=== PATIENT | male | born 1955 | race Caucasian/White ===

== ENCOUNTER 2018-05-03 11:51 | Emergency (ER) | payer SELFPAY ==
[2018-05-03 12:26] LABS: CHLORIDE,CL 103 mEq/L (98-106); SODIUM,NA 139 mEq/L (136-145)
--- NOTE | 2018-05-03 13:40 | EDM.PDOC ---
ED HPI GENERAL MEDICAL PROBLEM - General Chief Complaint: Chest Pain Stated Complaint: chest pain Time Seen by Provider: 05/03/18 12:13 Source of Information: Reports: Patient History Limitations: Reports: No Limitations - History of Present Illness INITIAL COMMENTS - FREE TEXT/NARRATIVE: Bebo is a 63 year old male who presents to the ED with c/o substernal chest pain radiating to his throat and abdomen He has no known significant PMH, although he has not seen a medical provider in 30+ years. He reports the pain began at 0922 this morning. 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 He then went to the local [employer] for breakfast. He then went home to bed and the pain woke him up from sleep at 0922. He denies any shortness of breath, dizziness, confusion, N/V/D, abdominal pain, urinary symptoms. He has not taken anything for the pain. Onset: Today, Sudden Onset Date: 05/03/18 Onset Time: 09:22 Duration: Constant Location: Reports: Chest Quality: Reports: Pressure, Sharp Severity: Severe Improves with: Reports: None Worsens with: Reports: None Associated Symptoms: Reports: Chest Pain. Denies: Confusion, Cough, cough w sputum, Diaphoresis, Fever/Chills, Headaches, Loss of Appetite, Malaise, Nausea/ Vomiting, Rash, Seizure, Shortness of Breath, Syncope, Weakness Middle Chest Pain Score (Numeric/FACES): 10 Past Medical History - Past Health History Medical/Surgical History: Denies Medical/Surgical History Social & Family History - Family History Family Medical History: Noncontributory - Tobacco Use Smoking Status *Q: Current Status Unknown - Living Situation & Occupation Living situation: Reports: Occupation: Employed ([employer]) ED ROS GENERAL - Review of Systems Review Of Systems: See Below Constitutional: Reports: No Symptoms. Denies: Fever, Chills, Weakness, Fatigue , Decreased Appetite HEENT: Reports: No Symptoms Respiratory: Reports: No Symptoms. Denies: Shortness of Breath, Wheezing, Pleuritic Chest Pain, Cough, Sputum Cardiovascular: Reports: Chest Pain, Blood Pressure Problem. Denies: Dyspnea on Exertion, Edema, Lightheadedness, Palpitations, Syncope Endocrine: Reports: No Symptoms GI/Abdominal: Denies: Abdominal Pain, Black Stool, Bloody Stool, Constipation, Diarrhea, Decreased Appetite, Hematemesis, Hematochezia, Melena, Nausea, Vomiting : Reports: No Symptoms. Denies: Dysuria, Frequency, Hematuria, Urgency Musculoskeletal: Reports: No Symptoms Skin: Reports: No Symptoms. Denies: Cyanosis, Pallor, Diaphoresis Neurological: Reports: No Symptoms. Denies: Confusion, Dizziness, Headache, Numbness, Syncope, Tingling, Weakness Psychiatric: Reports: No Symptoms Hematologic/Lymphatic: Reports: No Symptoms Immunologic: Reports: No Symptoms ED EXAM, GENERAL - Physical Exam Exam: See Below Exam Limited By: No Limitations General Appearance: Alert, WD/WN, Moderate Distress Eye Exam: Bilateral Eye: EOMI, Normal Fundi, Normal Inspection, PERRL Nose: Normal Inspection, Normal Mucosa, No Blood Throat/Mouth: Normal Inspection, Normal Lips, Normal Teeth, Normal Gums, Normal Oropharynx, Normal Voice, No Airway Compromise Head: Atraumatic, Normocephalic Neck: Normal Inspection, Supple, Non-Tender, Full Range of Motion Respiratory/Chest: No Respiratory Distress, Lungs Clear, Normal Breath Sounds, No Accessory Muscle Use, Chest Non-Tender Cardiovascular: Normal Peripheral Pulses, Regular Rate, Rhythm, No Edema, No Gallop, No JVD, No Murmur, No Rub Peripheral Pulses: 2+: Radial (L), Radial (R) GI/Abdominal: Normal Bowel Sounds, Soft, Non-Tender, No Organomegaly, No Distention, No Abnormal Bruit, No Mass Back Exam: Normal Inspection, Full Range of Motion, NT Extremities: Normal Inspection, Normal Range of Motion, Non-Tender, Normal Capillary Refill, No Pedal Edema Neurological: Alert, Oriented, CN II-XII Intact, Normal Cognition, Normal Gait, Normal Reflexes, No Motor/Sensory Deficits Psychiatric: Normal Affect, Normal Mood Skin Exam: Warm, Dry, Intact, Normal Color, No Rash Lymphatic: No Adenopathy EKG INTERPRETATION EKG Date: 05/03/18 Rhythm: NSR ST-T: Elevated Course - Vital Signs Last Recorded V/S: Last Vital Signs Temp Pulse 70 05/03/18 12:13 Resp 20 05/03/18 12:13 BP 192/107 H 05/03/18 12:13 Pulse Ox 100 05/03/18 12:13 - Orders/Labs/Meds Orders: Active Orders 24 hr Category Date Time Status Ang Abdomen [CT] Routine Exams 05/03/18 Taken Ang Chest [CT] Routine Exams 05/03/18 Taken Ang Pelvis [CT] Routine Exams 05/03/18 Taken Chest 1V Frontal [CR] Routine Exams 05/03/18 Taken Labs: Laboratory Tests 05/03/18 05/03/18 05/03/18 Range/Units 12:15 12:15 12:15 WBC 9.1 (5.0-10.0) 10^3/uL RBC 5.19 (4.50-6.00) 10^6/uL Hgb 15.7 (14.0-18.0) g/dL Hct 45.1 (40.0-54.0) % MCV 86.9 (82.0-94.0) fL MCH 30.3 (27.0-32.0) pg MCHC 34.8 (33.0-38.0) g/dL RDW Coeff of Juliet 13.0 (11.0-15.0) % Plt Count 220 (150-400) 10^3/uL Neut % (Auto) 56.2 (35-85) % Lymph % (Auto) 30.1 (10-55) % Sutton % (Auto) 11.6 (0-16) % Eos % (Auto) 1.9 (0-5) % Baso % (Auto) 0.2 (0-3) % Neut # (Auto) 5.09 (1.80-7.00) 10^3/uL Lymph # (Auto) 2.73 (1.00-4.80) 10^3/uL Sutton # (Auto) 1.05 H (0.00-0.80) 10^3/uL Eos # (Auto) 0.17 (0.00-0.45) 10^3/uL Baso # (Auto) 0.02 10^3/uL PT 9.9 (9.7-12.3) SEC INR 0.95 (0.92-1.18) APTT 29.4 (23.2-32.3) SEC Sodium 139 (136-145) mEq/L Potassium 3.5 (3.5-5.0) mEq/L Chloride 103 (98-106) mEq/L Carbon Dioxide 27 (21-32) mmol/L BUN 16 (7-18) mg/dL Creatinine 1.1 (0.7-1.3) mg/dL Est Cr Clr Drug Dosing TNP Estimated GFR (MDRD) > 60 (>=60) mL/min Glucose 149 H (75-99) mg/dL Calcium 8.9 (8.4-10.1) mg/dL Lactate Dehydrogenase 211 H (100-190) U/L Creatine Kinase 124 (35-232) U/L Troponin I 0.710 H (0.00-0.06) ng/mL - Re-Assessments/Exams Free Text/Narrative Re-Assessment/Exam: Initial EKG reveals ST elevation in leads aVF and V3. Labs stable other than troponin elevated at 0.7. Please see [facility] documentation for additional documentation and timing of interventions. Dr. Reardon was involved in care throughout course of ED visit. Patients blood pressure significantly elevated throughout stay. We were unable to start medication gtt to control BP as medications were not available that would not effect his low pulse. He did receive 2 doses of SL 0.4 mg nitro, 4 mg morphine x2 doses, 1L NS fluid bolus, 325 mg aspirin, 4 mg Zofran, Heparin bolus and gtt, and NS fluids at 150 mL/hr during time in ED. Patient's pain was improved with morphine. Patient has no contraindications to blood thinners. Risks and benefits of blood thinners discussed with patient, who was agreeable to initiating heparin. Prior to initiating heparin therapy, patient did have CTA of chest, abdomen, and pelvis to r/o aortic dissection. Called Dr. Babcock ([facility] radiology) to review films. He reports no dissection. Heparin bolus and gtt was then initiated. Dosing per Dr. Reardon. Risks and benefits of transfer were discussed with patient. Risks of transfer include worsening of condition, , and helicopter crash enroute. Benefits of transfer include higher level of care and cardiology consultation with PCI capabilities. Risks of nontransfer include worsening of condition, , and no PCI capability. Benefits of nontransfer include convenience with close proximity to home and familiarity of environment. Patient voiced understanding and was agreeable to transfer via [facility]. Throughout ED stay, patient remained alert and oriented. He remained in NSR. Departure - Departure Time of Disposition: 13:40 Disposition: DC/Tfer to Acute Hospital 02 Reason for Transfer *Q: Primary PCI Indicated Condition: Serious Clinical Impression: ST elevation myocardial infarction (STEMI) of inferior wall, initial episode of care, Uncontrolled hypertension Forms: ED Department Discharge - Problem List & Annotations (1) ST elevation myocardial infarction (STEMI) of inferior wall, initial episode of care SNOMED Code(s): 30953396, 165951420 Code(s): I21.19 - STEMI INVOLVING OTH CORONARY ARTERY OF INFERIOR WALL Status: Acute (2) Uncontrolled hypertension SNOMED Code(s): 77804637, 12438865 Code(s): I10 - ESSENTIAL (PRIMARY) HYPERTENSION Status: Acute - Problem List Review Problem List Initiated/Reviewed/Updated: Yes - My Orders Last 24 Hours: My Active Orders 05/03/18 Ang Abdomen [CT] Routine Ang Chest [CT] Routine Ang Pelvis [CT] Routine Chest 1V Frontal [CR] Routine - Assessment/Plan Last 24 Hours: My Active Orders 05/03/18 Ang Abdomen [CT] Routine Ang Chest [CT] Routine Ang Pelvis [CT] Routine Chest 1V Frontal [CR] Routine Assessment:: Inferior STEMI Uncontrolled hypertension Plan: Patient is transferred to [facility] with accepting physician Dr. Fair ( cardiology). He will be transported via [facility].
== END 2018-05-03 13:40 ==
LOC: CC.ED 11:51
DX: I21.19 ST elevation (STEMI) myocardial infarction involving other coronary artery of inferior wall (principal); I10 Essential (primary) hypertension
CPT/HCPCS: 36415; 71045; 71275; 72191; 74175; 80048; 82550; 83615; 84484; 85025; 85610; 85730; 93005; 96365; 96374; 96375; 99285; Q9967

== ENCOUNTER 2019-08-01 15:21 | Emergency (ER) | payer BC ==
[2019-08-01] MEDS: Albuterol/Ipratropium 3.0-0.5 MG/3 ML Neb Soln NEB ONE (15:43)
--- NOTE | 2019-08-01 15:56 | EDM.PDOC ---
ED HPI GENERAL MEDICAL PROBLEM - General Chief Complaint: ENT Problem Stated Complaint: cough Time Seen by Provider: 08/01/19 15:36 Source of Information: Reports: Patient History Limitations: Reports: No Limitations - History of Present Illness INITIAL COMMENTS - FREE TEXT/NARRATIVE: This patient is a 64 year old male that presents to the ER. Patient reports that on Friday he started having running nose, congestion, and productive cough. Patient denies boyer, dizziness, n, v, d, f, chest pain, shortness of breath. He denies smoking. Onset Date: 07/30/19 Duration: Day(s): (2) Severity: Mild Improves with: Reports: None Worsens with: Reports: None Associated Symptoms: Reports: Cough, cough w sputum. Denies: Chest Pain, Diaphoresis, Fever/Chills, Headaches, Loss of Appetite, Malaise, Nausea/Vomiting , Rash, Seizure, Shortness of Breath, Syncope, Weakness - Related Data Allergies Allergy/AdvReac Type Severity Reaction Status Date / Time No Known Allergies Allergy Verified 08/01/19 15:24 Home Meds: Home Meds Aspirin [Adult Low Dose Aspirin EC] 81 mg PO DAILY 08/01/19 [History] Benzonatate [Tessalon Perle] 100 mg PO TID PRN #30 capsule 08/01/19 [Rx] Clopidogrel Bisulfate [Clopidogrel] 75 mg PO DAILY 08/01/19 [History] Cyanocobalamin (Vitamin B-12) [Cyanocobalamin Injection] 1,000 mcg IM ASDIRECTED 08/01/19 [History] Folic Acid 2 mg PO DAILY 08/01/19 [History] Levofloxacin [Levaquin] 500 mg PO DAILY 5 Days #5 tablet 08/01/19 [Rx] Metoprolol Succinate 25 mg PO DAILY 08/01/19 [History] Nitroglycerin [Nitrostat] 0.4 mg SL ASDIRECTED PRN 08/01/19 [History] Ramipril 10 mg PO DAILY 08/01/19 [History] Rosuvastatin Calcium [Crestor] 40 mg PO DAILY 08/01/19 [History] predniSONE [Prednisone] 10 mg PO BID 3 Days #6 tablet 08/01/19 [Rx] Past Medical History - Past Health History Medical/Surgical History: Denies Medical/Surgical History Social & Family History - Family History Family Medical History: Noncontributory - Tobacco Use Smoking Status *Q: Never Smoker - Caffeine Use Caffeine Use: Reports: Soda - Recreational Drug Use Recreational Drug Use: No - Living Situation & Occupation Living situation: Reports: Occupation: Employed ([employer]) ED ROS GENERAL - Review of Systems Review Of Systems: See Below Constitutional: Reports: No Symptoms. Denies: Fever, Chills HEENT: Reports: Rhinitis Respiratory: Reports: Cough, Sputum. Denies: Shortness of Breath, Wheezing, Pleuritic Chest Pain Cardiovascular: Reports: No Symptoms Endocrine: Reports: No Symptoms GI/Abdominal: Reports: No Symptoms : Reports: No Symptoms Musculoskeletal: Reports: No Symptoms Skin: Reports: No Symptoms Neurological: Reports: No Symptoms Psychiatric: Reports: No Symptoms Hematologic/Lymphatic: Reports: No Symptoms Immunologic: Reports: No Symptoms ED EXAM, GENERAL - Physical Exam Exam: See Below Exam Limited By: Other (This patient is a poor historian as far as knowing medications, medical conditions, and recent docotr visits. Patient is able to give me history on his current complaint though.) General Appearance: Alert, WD/WN, No Apparent Distress Eye Exam: Bilateral Eye: Normal Inspection, PERRL Ears: Normal External Exam, Normal Canal, Hearing Grossly Normal, Normal TMs Ear Exam: Bilateral Ear: Auricle Normal, Canal Normal, TM normal Nose: Normal Inspection, Normal Mucosa, No Blood Throat/Mouth: Normal Inspection, Normal Lips, Normal Teeth, Normal Gums, Normal Voice, No Airway Compromise, Other (post nasal gtt) Head: Atraumatic, Normocephalic Neck: Normal Inspection, Supple, Non-Tender, Full Range of Motion Respiratory/Chest: No Respiratory Distress, No Accessory Muscle Use, Chest Non- Tender, Wheezing (mild expiratory wheeze throughout) Cardiovascular: Normal Peripheral Pulses, Regular Rate, Rhythm, No Edema, No Gallop, No JVD, No Murmur, No Rub Back Exam: Normal Inspection, Full Range of Motion Extremities: Normal Inspection, Normal Range of Motion, Non-Tender, No Pedal Edema, Normal Capillary Refill Neurological: Alert, Oriented, Normal Gait, No Motor/Sensory Deficits, Memory Loss Recent Events Psychiatric: Normal Affect, Normal Mood Skin Exam: Warm, Dry, Intact, Normal Color, No Rash Lymphatic: No Adenopathy Course - Vital Signs Last Recorded V/S: Last Vital Signs Temp 98.5 F 08/01/19 15:22 Pulse 63 08/01/19 15:22 Resp 18 08/01/19 15:22 BP 153/74 H 08/01/19 15:22 Pulse Ox 100 08/01/19 15:22 - Orders/Labs/Meds Orders: Active Orders 24 hr Category Date Time Status RT Aerosol Therapy [RC] ASDIRECTED Care 08/01/19 15:41 Active RT Post Treatment Assessment [RC] Click to Edit Care 08/01/19 16:06 Active RT Pre-Treatment Assessment [RC] Click to Edit Care 08/01/19 16:06 Active Chest 2V [CR] Stat Exams 08/01/19 15:40 Taken Meds: Medications Discontinued Medications Generic Name Dose Route Start Last Admin Trade Name Suyapa PRN Reason Stop Dose Admin Albuterol 1 gm 08/01/19 16:05 Ventolin Hfa INH 08/01/19 16:06 NOW STA Albuterol/Ipratropium 3 ml 08/01/19 15:40 08/01/19 15:43 Duoneb 3.0-0.5 Mg/3 Ml NEB 08/01/19 15:41 3 ml ONETIME ONE Administration Levofloxacin 500 mg 08/01/19 16:06 Levaquin PO 08/01/19 16:07 ONETIME ONE Prednisone 10 mg 08/01/19 16:07 Prednisone PO 08/01/19 16:08 NOW STA - Radiology Interpretation Free Text/Narrative:: CXR: No infiltrates. - Re-Assessments/Exams Free Text/Narrative Re-Assessment/Exam: 08/01/19 15:56 This patient seems forgetful during his exam. He does not recall his medications , medical history. He did not remember having a heart attack last year. I reviewed patient previous doctor visit notes. He has seen his PCP this month with family due to forgetting and concern for dementia. This is unchanged here in the ER today. He is currently undergoing workup and followup with his PCP for his memory. The patient today is able to give me history of his current complaint. Departure - Departure Time of Disposition: 16:10 Disposition: Home, Self-Care 01 Condition: Good Clinical Impression: Acute bronchitis Qualifiers: Bronchitis organism: unspecified organism Qualified Code(s): J20.9 - Acute bronchitis, unspecified - Discharge Information *PRESCRIPTION DRUG MONITORING PROGRAM REVIEWED*: Not Applicable *COPY OF PRESCRIPTION DRUG MONITORING REPORT IN PATIENT TALIB: Not Applicable Prescriptions: Benzonatate [Tessalon Perle] 100 mg PO TID PRN #30 capsule PRN Reason: Cough Levofloxacin [Levaquin] 500 mg PO DAILY 5 Days #5 tablet predniSONE [Prednisone] 10 mg PO BID 3 Days #6 tablet Instructions: Acute Bronchitis, Adult, [id number] Forms: ED Department Discharge Additional Instructions: Followup with your primary care provider Return to the ER for worsening of condition or any emergent concerns Levaquin 500mg 1 pill once a day for 5 days #5: no refill: At your pharmacy Prednisone 10mg 1 pill twice a day for 3 days #6 no refill: At your pharmacy Proair 90mcg inhaler 2 puffs every 6 hours as needed for shortness of breath #1 take home Tessalon 100mg 1 pill three times a day as needed for cough #30 no refill: At your pharmacy [facility] My Orders Last 24 Hours: My Active Orders 08/01/19 15:40 Chest 2V [CR] Stat 08/01/19 15:41 RT Aerosol Therapy [RC] ASDIRECTED 08/01/19 16:06 RT Post Treatment Assessment [RC] Click to Edit RT Pre-Treatment Assessment [RC] Click to Edit - Assessment/Plan Last 24 Hours: My Active Orders 08/01/19 15:40 Chest 2V [CR] Stat 08/01/19 15:41 RT Aerosol Therapy [RC] ASDIRECTED 08/01/19 16:06 RT Post Treatment Assessment [RC] Click to Edit RT Pre-Treatment Assessment [RC] Click to Edit Plan: PLEASE SEE RN NOTE FOR PFSH.
[2019-08-01] MEDS: Albuterol 8 GM Inhaler INH STA (16:13)
[2019-08-01] MEDS: predniSONE 5 MG Tab PO STA (16:14)
[2019-08-01] MEDS: Levofloxacin 500 MG Tab PO ONE (16:15)
== END 2019-08-01 16:20 | disposition home or self-care (01) ==
LOC: CC.ED 15:21
DX: J20.9 Acute bronchitis, unspecified (principal); Z79.82 Long term (current) use of aspirin; Z79.899 Other long term (current) drug therapy
CPT/HCPCS: 71046; 94640; 99283; A9270; J7620-GY

== ENCOUNTER 2021-08-12 02:25 | Emergency (ER) | payer BC ==
[2021-08-12] MEDS ORDERED: Aspirin 81 MG Tab.Chew PO ONE (02:59)
[2021-08-12] MEDS ORDERED: Morphine 2 MG/ML SYRINGE ONE (03:14)
[2021-08-12 03:25] LABS: PTT,PARTIAL THROMBOPLSTIN TIME 26.3 SEC (23.2-32.3)
[2021-08-12] MEDS ORDERED: Morphine 2 MG/ML SYRINGE IVPUSH ONE (03:34)
[2021-08-12 03:35] LABS: CHLORIDE,CL 98 mEq/L (98-106); SODIUM,NA 137 mEq/L (136-145)
[2021-08-12] MEDS ORDERED: Nitroglycerin/D5W 25 MG/250 ML BOTTLE IV SCH (03:45)
--- NOTE | 2021-08-12 03:51 | EDM.PDOC ---
ED HPI GENERAL MEDICAL PROBLEM - General Chief Complaint: General Stated Complaint: chest pain Time Seen by Provider: 08/12/21 03:10 Source of Information: Reports: Patient History Limitations: Reports: No Limitations - History of Present Illness INITIAL COMMENTS - FREE TEXT/NARRATIVE: Bebo is a 66 year old male who presents to ER with complaints of chest pain. Initially had pain yesterday am starting around 0600 when finishing his shift at the [employer]. Ate when he got home and the pressure in his chest subsided. Went to bed, set his alarm for 3 pm but awoke at 2 pm and felt an overwhelming feeling of "being very tired". Went to the [employer] for supper around 6 pm and the pain recurred. Has had persistent pain since that time, rates at a 5/10. Describes as pressure, nonradiating. No shortness of breath. No diaphoresis. Denies nausea. Has history of "clogged artery in 2018". Per his records, was to be on Plavix, Metoprolol and Ramipril. When questioned, admits has not taken very "a long time" as thought when the meds were done and said no refills, did not need to take any further. Onset: Gradual Duration: Day(s):, Waxing/Waning Location: Reports: Chest Quality: Reports: Pressure Severity: Moderate Improves with: Reports: None Associated Symptoms: Reports: Chest Pain, Malaise, Weakness. Denies: Confusion, Cough, Fever/Chills, Loss of Appetite, Nausea/Vomiting, Shortness of Breath - Related Data Allergies Allergy/AdvReac Type Severity Reaction Status Date / Time No Known Allergies Allergy Verified 08/12/21 03:28 Home Meds: Home Meds C,E,Zinc,Copper 11/Uzfcv5h/Lut [[facility] Health Adult 50 Plus Sftgl] 1 tab PO ASDIRECTED 08/12/21 [History] Past Medical History Cardiovascular History: Reports: High Cholesterol, Hypertension, [place] Hematologic History: Reports: B12 Deficiency Social & Family History - Family History Family Medical History: No Pertinent Family History - Tobacco Use Tobacco Use Status *Q: Former Tobacco User Years of Tobacco use: 12 Packs/Tins Daily: 1 Used Tobacco, but Quit: Yes Month/Year Tobacco Last Used: 12 - Caffeine Use Caffeine Use: Reports: Soda, Tea - Recreational Drug Use Recreational Drug Use: No - Living Situation & Occupation Living situation: Reports: Occupation: Employed ([employer]) ED ROS GENERAL - Review of Systems Review Of Systems: See Below Constitutional: Reports: Malaise, Weakness, Fatigue. Denies: Fever, Chills, Decreased Appetite HEENT: Denies: Ear Pain, Rhinitis, Sinus Problem, Throat Pain Respiratory: Denies: Shortness of Breath, Cough Cardiovascular: Reports: Chest Pain. Denies: Edema, Lightheadedness Endocrine: Reports: Fatigue GI/Abdominal: Denies: Abdominal Pain, Constipation, Diarrhea, Nausea, Vomiting : Reports: No Symptoms Musculoskeletal: Reports: No Symptoms Skin: Reports: No Symptoms Neurological: Reports: No Symptoms ED EXAM, GENERAL - Physical Exam Exam: See Below Exam Limited By: No Limitations General Appearance: Alert, WD/WN, No Apparent Distress Ears: Normal External Exam, Other (cerumen noted bilaterally, unable to vis ualize TM) Nose: Normal Inspection, Normal Mucosa, No Blood Throat/Mouth: Normal Inspection, Normal Oropharynx Head: Normocephalic Neck: Normal Inspection, Supple, Non-Tender Respiratory/Chest: No Respiratory Distress, Lungs Clear, Normal Breath Sounds Cardiovascular: Regular Rate, Rhythm GI/Abdominal: Normal Bowel Sounds, Soft, Non-Tender Back Exam: Normal Inspection Extremities: Normal Inspection, Pedal Edema (1+) Neurological: Alert, Oriented Skin Exam: Warm, Dry Course - Vital Signs Last Recorded V/S: Last Vital Signs Temp 100.2 F 08/12/21 02:40 Pulse 75 08/12/21 04:03 Resp 16 08/12/21 04:03 BP 169/99 H 08/12/21 04:03 Pulse Ox 98 08/12/21 04:03 - Orders/Labs/Meds Orders: Active Orders 24 hr Category Date Time Status Chest 2V [CR] Stat Exams 08/12/21 02:56 Taken Nitroglycerin/D5W [Nitroglycerin 25 MG/D5W 250 ML] Med 08/12/21 03:45 Active 25 mg in 250 ml IV TITRATE Medication Orders Nitroglycerin/Dextrose (Nitroglycerin 25 Mg/D5w 250 Ml) 25 mg in 250 mls @ 3 mls/hr IV TITRATE POP; Protocol Last Admin: 08/12/21 03:59 Dose: 5 mcg/min, 3 mls/hr Documented by: MAK Labs: Laboratory Tests 08/12/21 08/12/21 08/12/21 Range/Units 03:00 03:00 03:00 WBC 11.7 H (4.0-11.0) 10^3/uL RBC 4.91 (4.50-6.00) x10^6/uL Hgb 14.6 (14.0-18.0) g/dL Hct 41.9 L (42.0-52.0) % MCV 85.3 (83.0-97.0) fL MCH 29.7 (27.0-32.0) pg MCHC 34.8 (32.0-36.0) g/dL RDW Coeff of Juliet 12.6 (11.0-15.0) % Plt Count 273 (150-400) 10^3/uL Immature Gran % (Auto) 0.2 (0.0-4.9) % Neut % (Auto) 77.4 H (41-71) % Lymph % (Auto) 13.4 L (24-44) % [place] % (Auto) 8.6 (0-10) % Eos % (Auto) 0.2 (0-6) % Baso % (Auto) 0.2 (0-1) % Neut # (Auto) 9.06 H (1.80-8.00) x10^3/uL Lymph # (Auto) 1.56 (0.60-5.00) 10^3/uL [place] # (Auto) 1.00 (0.00-1.50) 10^3/uL Eos # (Auto) 0.02 (0.00-1.50) 10^3/uL Baso # (Auto) 0.02 (0.00-0.50) 10^3/uL Immature Gran # (Auto) 0.02 (0.00-0.49) 10^3/uL PT 10.3 (9.7-12.3) SEC INR 0.94 (0.92-1.18) APTT 26.3 (23.2-32.3) SEC Sodium 137 (136-145) mEq/L Potassium 3.6 (3.5-5.0) mEq/L Chloride 98 (98-106) mEq/L Carbon Dioxide 27 (21-32) mmol/L BUN 11 (7-18) mg/dL Creatinine 1.2 (0.7-1.3) mg/dL Est Cr Clr Drug Dosing 60.17 mL/min Estimated GFR (MDRD) > 60 (>=60) mL/min Glucose 148 H D (75-99) mg/dL Calcium 9.0 (8.4-10.1) mg/dL Magnesium 2.1 (1.8-2.4) mg/dL Total Bilirubin 0.6 (0.0-1.0) mg/dL AST 162 H (15-37) U/L ALT 46 (12-78) U/L Alkaline Phosphatase 86 (46-116) U/L Lactate Dehydrogenase 358 H (100-190) U/L Creatine Kinase 1445 H (35-232) U/L Troponin I High Sens 58366.4 H* (<=76) pg/mL Total Protein 7.9 (6.4-8.2) g/dL Albumin 3.9 (3.4-5.0) g/dL Lipase 75 (73-393) U/L SARS CoV-2 RNA Rapid HEATHER (NEGATIVE) 08/12/21 Range/Units 03:00 WBC (4.0-11.0) 10^3/uL RBC (4.50-6.00) x10^6/uL Hgb (14.0-18.0) g/dL Hct (42.0-52.0) % MCV (83.0-97.0) fL MCH (27.0-32.0) pg MCHC (32.0-36.0) g/dL RDW Coeff of Juliet (11.0-15.0) % Plt Count (150-400) 10^3/uL Immature Gran % (Auto) (0.0-4.9) % Neut % (Auto) (41-71) % Lymph % (Auto) (24-44) % [place] % (Auto) (0-10) % Eos % (Auto) (0-6) % Baso % (Auto) (0-1) % Neut # (Auto) (1.80-8.00) x10^3/uL Lymph # (Auto) (0.60-5.00) 10^3/uL [place] # (Auto) (0.00-1.50) 10^3/uL Eos # (Auto) (0.00-1.50) 10^3/uL Baso # (Auto) (0.00-0.50) 10^3/uL Immature Gran # (Auto) (0.00-0.49) 10^3/uL PT (9.7-12.3) SEC INR (0.92-1.18) APTT (23.2-32.3) SEC Sodium (136-145) mEq/L Potassium (3.5-5.0) mEq/L Chloride (98-106) mEq/L Carbon Dioxide (21-32) mmol/L BUN (7-18) mg/dL Creatinine (0.7-1.3) mg/dL Est Cr Clr Drug Dosing mL/min Estimated GFR (MDRD) (>=60) mL/min Glucose (75-99) mg/dL Calcium (8.4-10.1) mg/dL Magnesium (1.8-2.4) mg/dL Total Bilirubin (0.0-1.0) mg/dL AST (15-37) U/L ALT (12-78) U/L Alkaline Phosphatase (46-116) U/L Lactate Dehydrogenase (100-190) U/L Creatine Kinase (35-232) U/L Troponin I High Sens (<=76) pg/mL Total Protein (6.4-8.2) g/dL Albumin (3.4-5.0) g/dL Lipase (73-393) U/L SARS CoV-2 RNA Rapid HEATHER Negative (NEGATIVE) Meds: Medications Generic Name Dose Route Start Last Admin Trade Name Freq PRN Reason Stop Dose Admin Nitroglycerin/Dextrose 25 mg in 250 mls @ 3 mls/hr 08/12/21 03:45 08/12/21 03:59 Nitroglycerin 25 Mg/D5w 250 Ml IV 5 mcg/min TITRATE POP 3 mls/hr Administration Protocol 5 MCG/MIN Discontinued Medications Generic Name Dose Route Start Last Admin Trade Name Freq PRN Reason Stop Dose Admin Aspirin 324 mg 08/12/21 02:59 08/12/21 02:30 Aspirin 81 Mg Tab.Chew PO 08/12/21 03:00 324 mg ONETIME ONE Administration Morphine Sulfate 1 mg 08/12/21 03:34 08/12/21 03:38 Morphine 2 Mg/Ml Syringe IVPUSH 08/12/21 03:35 1 mg ONETIME ONE Administration Morphine Sulfate Confirm 08/12/21 03:14 08/12/21 03:38 Morphine 2 Mg/Ml Syringe Administered 08/12/21 03:15 Not Given Dose 2 mg .ROUTE .STK-MED ONE - Re-Assessments/Exams Free Text/Narrative Re-Assessment/Exam: 08/12/21 03:14 Repeated EKG on arrival as when viewed first EKG personally, did note STEMI but no obvious ST elevation, did note T wave inversion. Second EKG done, still noted T wave inversion, read as acute inferior infarct. Contacted [employer] call and EKG faxed. Flight activated by [employer] Call. [id number]-EKG resent as first one sent, error received. Spoke with Dr. Carvajal. Did feel TN is completed due to EKG and time frame. Troponin 34570. Vital signs still note elevated blood pressure. Has been given 4 baby aspirin and 1 mg of morphine which did "relieve the pain some". Patient very vague with symptoms, complaints. Dr. Carvajal suggested Nitro drip. No lytics recommended. 034-Dr. Carvajal did discuss with ER physician Dr. Richards who agreed to accept the patient in transfer. Patient advised. Risks and benefits discussed with patient. Risks of transfer include worsening condition, aircraft collision/crash or possibly . Benefits of transfer include specialized cardiac care and cardiac intervention. Risks of non transfer include no specialized cardiac intervention, worsening status and possible . Benefits of non transfer include care close to home. Patient agrees to transfer. 08/12/21 04:16 [facility] here to assume care. Departure - Departure Time of Disposition: 04:17 Disposition: DC/Tfer to [facility] 02 Clinical Impression: TN, Myocardial infarction - Discharge Information *PRESCRIPTION DRUG MONITORING PROGRAM REVIEWED*: No *COPY OF PRESCRIPTION DRUG MONITORING REPORT IN PATIENT TALIB: No Referrals: Aries Aaron MD [Primary Care Provider] - Forms: ED Department Discharge Additional Instructions: Transfer [facility] to [facility] care of Dr. Richards Sepsis Event Note (ED) - Focused Exam Vital Signs: Vital Signs Temp Pulse Resp BP Pulse Ox 08/12/21 04:03 75 16 169/99 H 98 08/12/21 04:02 83 13 198/114 H 92 L 08/12/21 03:47 79 17 184/97 H 98 08/12/21 02:55 78 15 180/101 H 99 08/12/21 02:40 100.2 F 75 20 184/98 H 99 - My Orders Last 24 Hours: My Active Orders 08/12/21 02:56 Chest 2V [CR] Stat 08/12/21 03:45 Nitroglycerin/D5W [Nitroglycerin 25 MG/D5W 250 ML] 25 mg in 250 ml IV TITRATE - Assessment/Plan Last 24 Hours: My Active Orders 08/12/21 02:56 Chest 2V [CR] Stat 08/12/21 03:45 Nitroglycerin/D5W [Nitroglycerin 25 MG/D5W 250 ML] 25 mg in 250 ml IV TITRATE
== END 2021-08-12 04:25 ==
LOC: CC.ED 02:25
DX: I21.9 Acute myocardial infarction, unspecified (principal); I10 Essential (primary) hypertension; E78.00 Pure hypercholesterolemia, unspecified; Z87.891 Personal history of nicotine dependence; Z20.822 Contact with and (suspected) exposure to COVID-19; Z79.01 Long term (current) use of anticoagulants
CPT/HCPCS: 36415; 71046; 80053; 82550; 83615; 83690; 83735; 84484; 85025; 85610; 85730; 93005; 96365; 96375; 99285-25; A9270-GY; J2270; J3490; U0002

== ENCOUNTER 2025-03-30 16:42 | Emergency (ER) | payer MEDICARE ==
[2025-03-30] MEDS: Nitroglycerin 0.4 MG Tab.SL SL PRN (16:55)
[2025-03-30 17:00] LABS: BASOPHILS ABSOLUTE AUTO 0.02 10^3/uL (0.00-0.50); BASOPHILS PERCENT AUTO 0.2 % (0-1); EOSINOPHILS ABSOLUTE AUTO 0.17 10^3/uL (0.00-1.50); EOSINOPHILS PERCENT AUTO 1.9 % (0-6); HEMATOCRIT 45.1 % (42.0-52.0); HEMOGLOBIN 15.9 g/dL (14.0-18.0); IMMATURE GRAN ABSOLUTE AUTO 0.01 10^3/uL (0.00-0.49); IMMATURE GRAN PERCENT AUTO 0.1 % (0.0-4.9); LYMPHOCYTES ABSOLUTE AUTO 2.93 10^3/uL (0.60-5.00); LYMPHOCYTES PERCENT AUTO 32.4 % (24-44); MEAN CORPUSCULAR HEMOGLOBIN 30.8 pg (27.0-32.0); MEAN CORPUSCULAR HGB CONC 35.3 g/dL (32.0-36.0); MEAN CORPUSCULAR VOLUME 87.2 fL (83.0-97.0); MONOCYTES ABSOLUTE AUTO 1.11 10^3/uL (0.00-1.50); MONOCYTES PERCENT AUTO 12.3 % (0-10); NEUTROPHILS PERCENT AUTO 53.1 % (41-71); PLATELET COUNT,PLT 274 10^3/uL (150-400); RED BLOOD CELL COUNT 5.17 x10^6/uL (4.50-6.00)
[2025-03-30] MEDS: Aspirin 81 MG Tab.Chew PO ONE (17:08)
[2025-03-30] MEDS: Ondansetron 4 MG/2 ML SDV IVPUSH PRN (17:14)
[2025-03-30] MEDS: Morphine 4 MG/ML VIAL IVPUSH ONE ×2 (17:14→18:07)
[2025-03-30 17:27] LABS: ALBUMIN 3.8 g/dL (3.4-5.0); BILIRUBIN TOTAL 0.4 mg/dL (0.0-1.0); CALCIUM 8.7 mg/dL (8.4-10.1); CREATININE 1.5 mg/dL (0.7-1.3); EST CRCL DRUG DOSING (CG) 45.6 mL/min; POTASSIUM,K 3.8 mEq/L (3.5-5.0); PROTEIN TOTAL,TP 7.7 g/dL (6.4-8.2)
[2025-03-30 17:30] LABS: INR 1.04 (0.92-1.18); PROTHROMBIN TIME 10.8 SEC (9.3-11.3); PTT,PARTIAL THROMBOPLSTIN TIME 27.4 SEC (20.0-30.0)
[2025-03-30] MEDS: Tenecteplase 50 MG Kit IVPUSH ONE (17:48)
[2025-03-30] MEDS: Clopidogrel 75 MG Tab PO ONE (17:48)
[2025-03-30] MEDS: Sodium Chloride 0.9% 500 ML IV SCH (17:52)
[2025-03-30] MEDS: Heparin Sodium 5,000 Units/ML Vial IVPUSH ONE (17:52)
[2025-03-30] MEDS: Heparin Sodium/0.45% NaCl 25,000 UNITS/250 ML BAG IV SCH (17:53)
[2025-03-30] MEDS: Labetalol 20 MG/4 ML Syringe IVPUSH ONE (18:34)
[2025-03-30] MEDS: Ondansetron 4 MG/2 ML SDV IVPUSH STA (18:36)
== END 2025-03-30 19:02 ==
LOC: CC.ED 16:42
DX: I21.19 ST elevation (STEMI) myocardial infarction involving other coronary artery of inferior wall (principal); I10 Essential (primary) hypertension; Z79.899 Other long term (current) drug therapy
CPT/HCPCS: 36415; 71045; 80053; 82550; 83615; 83690; 83735; 83880; 84484; 85025; 85610; 85730; 93005; 93010; 96365; 96375; 96376; 99285-25; 99291; A9270-GY; J1644; J1920; J2270; J2405; J3101; J7040